=== PATIENT | female | born 1935 | race Caucasian/White ===

== ENCOUNTER 2021-11-26 11:09 | Emergency (ER) | payer MEDICARE ==
[~2021-11-26] VITALS: Ht 167.6 cm; Wt 80.0 kg
--- NOTE | 2021-11-26 11:43 | RAD ---
EXAM: Left knee, 3 views. HISTORY: Trauma. Pain. COMPARISON: None. FINDINGS: 3 views of the left knee are obtained. There is moderate to severe medial compartment joint space narrowing and spurring. There is mild genu varus. There is enthesopathy along the superior and inferior patella. There is trace joint fluid without a significant effusion. 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 No acute osseous f inding. Electronically signed by: Dawna Schumacher MD (11/26/2021 11:40 AM) [id number]
--- NOTE | 2021-11-26 12:35 | RAD ---
CT Head W/O Contrast: History: Reason: head trauma / Spl. Instructions: / History: Comparison: none Axial images were obtained without contrast. There is moderate diffuse atrophy. There is no mass effect, extraaxial fluid collections or hydrocep halus. There is no focal loss of rodriguez-white matter distinction to suggest acute ischemia, i.e. stroke. Impression: No acute findings. RS Compliance Statement: One or more of the following individualized dose reduction techniques were utilized for this examinat ion: 1. Automated exposure control 2. Adjustment of the mA and/or kV according to patient size 3. Use of iterative reconstruction technique Electronically signed by: Quinton Villa III, MD (11/26/2021 12:33 PM) [facility]
--- NOTE | 2021-11-26 12:41 | PHYS DOC ---
Past Medical History Past Surgical History: Hip Replacement Smoking Status: Never Smoker Alcohol Use: None General Adult EDM: Chief Complaint: KNEE INJURY HPI: HPI: Patient is a 86 year old female presents with a fall, patient states that she tripped on a step and hit her left knee on the anterior surface, patient states that she has left knee pain. Patient states that she also hit her lip, she did not hit her head. This fall was witnessed, she did not lose consciousness. She landed on carpet. Otherwise patient is feeling well. No other symptoms. No other pain. Review of Systems: Review of Systems: Constitutional: Denies fever or chills. [] Eyes: Denies change in visual acuity. [] HENT: Denies nasal congestion or sore throat. [] Respiratory: Denies cough or shortness of breath. [] Cardiovascular: Denies chest pain or edema. [] GI: Denies abdominal pain, nausea, vomiting, bloody stools or diarrhea. [] : Denies dysuria. [] Musculoskeletal: Denies back pain positive left knee pain. [] Integument: Denies rash. [] Neurologic: Denies headache, focal weakness or sensory changes. [] Endocrine: Denies polyuria or polydipsia. [] Lymphatic: Denies swollen glands. [] Psychiatric: Denies depression or anxiety. [] Heart Score: C/O Chest Pain: No Risk Factors: Risk Factors: DM, Current or recent (<one month) smoker, HTN, HLP, family history of CAD, obesity. Risk Scores: Score 0 - 3: 2.5% MACE over next 6 weeks - Discharge Home Score 4 - 6: 20.3% MACE over next 6 weeks - Admit for Clinical Observation Score 7 - 10: 72.7% MACE over next 6 weeks - Early Invasive Strategies Allergies: Allergies: Allergies Coded Allergies Type Severity Reaction Last Updated Verified isosorbide Allergy Severe severe abdominal pain 11/26/21 Yes cephalexin Allergy Mild hives 11/26/21 Yes nitrofurantoin Allergy Mild high fever 11/26/21 Yes lisinopril Allergy Unknown 11/26/21 Yes meloxicam Allergy Unknown 11/26/21 Yes pantoprazole Allergy Unknown sore throat 11/26/21 Yes sulfamethoxazole Allergy Unknown 11/26/21 Yes trimethoprim Allergy Unknown 11/26/21 Yes Uncoded Allergies Type Severity Reaction Last Updated Verified CONTAST Allergy Mild hives 11/26/21 ASA Allergy Unknown 11/26/21 DEPOBEDROL Allergy Unknown 11/26/21 DEXAMETHASON Allergy Unknown 11/26/21 Physical Exam: PE: Constitutional: Well developed, well nourished, no acute distress, non-toxic appearance. [] HENT: Normocephalic, atraumatic, bilateral external ears normal, oropharynx moist, no oral exudates, nose normal. [] Eyes: PERRLA, EOMI, conjunctiva normal, no discharge. [] Neck: Normal range of motion, no tenderness, supple, no stridor. [] Cardiovascular:Heart rate regular rhythm, no murmur [] Lungs & Thorax: Bilateral breath sounds clear to auscultation [] Abdomen: Bowel sounds normal, soft, no tenderness, no masses, no pulsatile masses. [] Skin: Warm, dry, no erythema, no rash. [] Back: No tenderness, no CVA tenderness. [] Extremities: Positive tenderness to the left knee on the superior tibia, no cyanosis, no clubbing, ROM intact, no edema. [] Neurologic: Alert and oriented X 3, normal motor function, normal sensory function, no focal deficits noted. [] Psychologic: Affect normal, judgement normal, mood normal. [] Current Patient Data: Vital Signs: Vital Signs Date Time Temp Pulse Resp B/P (MAP) Pulse Ox O2 Delivery O2 Flow Rate FiO2 11/26/21 12:01 76 14 177/83 (114) 100 Room Air 11/26/21 11:21 98.1 98.1 EKG: EKG: [] Radiology/Procedures: Radiology/Procedures: Left knee x-ray within normal limits, CT of the head no acute findings [] Impression: Left knee contusion, lip contusion Course & Med Decision Making: Course & Med Decision Making Pertinent Labs and Imaging studies reviewed. (See chart for details) 86-year-old female seen and evaluated by myself, patient noted left knee tenderness after fall. X-ray within normal limits, CT of the head also within normal limits. Patient had a mechanical fall, patient was discharged in stable and normal condition. Patient doing well, discussed the findings with the patient. Patient comfortable with outpatient follow-up. Patient request not to have any pain medication, I recommended that she take Tylenol and ibuprofen. Discharged in hemodynamically stable condition, all questions answered, ER precautions given. Dragon Disclaimer: Dragdeepika Disclaimer: This electronic medical record was generated, in whole or in part, using a voice recognition dictation system. Departure Departure Impression: Primary Impression: Left knee pain Disposition: HOME / SELF CARE / HOMELESS Condition: GOOD Patient Instructions: Contusion, [id number] Additional Instructions: Follow-up with your primary care physician in 1 to 2 weeks, you may take Tylenol and ibuprofen for the pain. If you have any other symptoms, you may present back to the emergency department. LAMBERTO HERNANDEZ MD November 26, 2021 12:41
[2021-11-26] MEDS ORDERED: ACETAMINOPHEN 325 MG TABLET. PO ONE (12:45)
[2021-11-26 12:55] VITALS: BP 183/109
== END 2021-11-26 13:08 | disposition home or self-care (01) ==
LOC: ER 11:09
DX: S80.02XA Contusion of left knee, initial encounter (principal); Z88.8 Allergy status to other drugs, medicaments and biological substances; Z88.1 Allergy status to other antibiotic agents; Z88.2 Allergy status to sulfonamides; Z88.6 Allergy status to analgesic agent; W01.0XXA Fall on same level from slipping, tripping and stumbling without subsequent striking against object, initial encounter; Y93.89 Activity, other specified; Y92.89 Other specified places as the place of occurrence of the external cause; Y99.8 Other external cause status
CPT/HCPCS: 70450; 73562; 99285-25